=== PATIENT | female | born 1980 ===

== ENCOUNTER 2023-03-11 08:53 | Outpatient (AMB) | payer BC, SELFPAY ==
--- NOTE | 2023-03-11 08:59 | MHC.PC.OV ---
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 Accompanied by: Self / Same As Patient Allergies No Known Allergies Allergy (Mild, Verified 03/11/23 09:14) NOT APPLICABLE Medication List - Last Reconciled 03/11/23 by Heidi Paula MD No Known Home Meds Tobacco use date assessed: 03/11/23 Dental Screening Dental Screen Date: 03/11/23 Did you have a dental visit in the last 12 months?: Yes Did you have a dental problem in the last 6 months where you did not have access to dental care?: No Was dental information given to patient?: Patient has dentist HPI HPI Comments History of Present Illness Details This is a 42-year-old female that comes for new patient physical exam. Last Pap smear was over 4 years ago. No chest pain or shortness of breath. No change in bowel or bladder habits. No depression or anxiety. Has never had a mammogram. [facility] Surgical History No pertinent past surgical history Family History Mother Pre-diabetes Hypertension Father Hypertension Paternal Uncle Prostate cancer Paternal Aunt Bladder cancer Social History Housing: Apartment Alcohol intake: never Patient Tobacco Use Status: Never used Tobacco e-Cigarette/Vaping Use: Never Used Second Hand Smoke Exposure: No service: No Current occupational status: employed Current occupational exposures/hazards: No Cognitive needs: No Hearing needs: No Vision needs: No Questionnaire PHQ-9 Over the last 2 weeks, how often have you been bothered by any of the following problems? 1. Little interest or pleasure in doing things: not at all 2. Feeling down, depressed, or hopeless: not at all 3. Trouble falling or staying asleep, or sleeping too much: not at all 4. Feeling tired or having little energy: not at all 5. Poor appetite or overeating: not at all 6. Feeling bad about yourself - or that you are a failure or have let yourself or your family down: not at all 7. Trouble concentrating on things, such as reading the newspaper or watching television: not at all 8. Moving or speaking so slowly that other people could have noticed. Or the opposite - being so fidgety or restless that you have been moving around a lot more than usual: not at all 9. Thoughts that you would be better off or of hurting yourself in some way: not at all Total score: 0 Depression Screening Interpretation: Negative Depression Screening Done: Yes 52966 - PHQ-9 Billing: Yes Source: Developed by Drs. Corky Wakefield, Lilly Hand, Daniel See and colleagues, with an educational piedad from [employer]. Thrive Questionnaire Date Thrive assessed: 03/11/23 I am a: Patient What is your living situation today?: I have a steady place to live Within the past 12 months, did the food you bought not last and you didn't have the money to get more?: Never true Within the past 12 months, did you worry whether your food would run out before you got money to buy more?: Never true Do you have trouble paying for medicines?: No Do you have trouble getting transportation to medical appointments?: No Do you have trouble paying your heating and electricity bill?: No Do you have trouble taking care of your child, family member or friend?: No Do you have trouble with day-to-day activities such as bathing, preparing meals, shopping, managing finances, etc.?: No Are you currently unemployed and looking for a job?: No Are you interested in more education?: No Please select the resources that you would like help with: None Currently or been in a relationship where the following occur: no concerns reported THRIVE Score: 0 AUDIT C Alcohol Use Questionnaire (AUDIT-C) 1. How often do you have a drink containing alcohol?: Never Total Score: 0 Score Reviewed/Action Taken: No JANA-7 AMB Questionnaire JANA-7 Date JANA - 7 assessed: 03/11/23 Feeling nervous, anxious, or on edge: 0 = Not at all Not being able to stop or control worryin = Not at all Worrying too much about different things: 0 = Not at all Trouble relaxin = Not at all Being so restless that it is hard to sit still: 0 = Not at all Becoming easily annoyed or irritable: 0 = Not at all Feeling afraid as if something awful might happen: 0 = Not at all Total JANA-7 score (0-4 normal; 5-9 mild; 10-14 moderate; 15-21 severe): 0 Source: Developed by Drs. Corky Wakefield, Lilly Hand, Daniel See and colleagues, with an educational piedad from [employer]. JANA-7 Assessment Billing JANA-7 Assessment Tool: JANA-7 Assessment 20148 Review of Systems Const All systems reviewed & are unremarkable except as noted in HPI and below Eyes Reports no additional complaints, Denies change in vision and Denies other visual disturbances Card Denies chest pain at rest, Denies chest pain with activity, Denies edema, Denies irregular heart rhythm, Denies claudication, Denies dyspnea, Denies dyspnea on exertion, Denies orthopnea, Denies paroxysmal nocturnal dyspnea and Denies slow heart rate Resp Denies cough, Denies dyspnea and Denies dyspnea on exertion GI Denies abdominal pain, Denies change in bowel habits, Denies excessive flatus, Denies nausea and Denies vomiting Denies urinary incontinence, Denies urinary hesitancy and Denies urinary urgency Musc Denies abnormal gait, Denies atrophy, Denies deformity and Denies limited range of motion Skin/Breast Denies bleeding lesions, Denies changing lesions and Denies rash Neuro Denies abnormal gait, Denies behavioral changes, Denies confusion and Denies lack of coordination Psych Denies behavioral changes and Denies confusion Physical exam (Primary Care) Vital Signs: Last Vital Signs BP 136/82 03/11/23 09:00 BMI result Body Mass Index 31.7 Tobacco/Smoking Status: Tobacco use Status Tobacco use date assessed 03/11/23 03/11/23 09:06 Patient Tobacco Use Status Never used Tobacco 03/11/23 09:06 e-Cigarette/Vaping Use Never Used 03/11/23 09:06 PHQ-9: PHQ-9 Score PHQ-9: Total score 0 03/11/23 09:29 Depression Screening Interpretation: Negative Thrive Assessment: Date of Thrive Assessment Date Thrive assessed 03/11/23 03/11/23 09:08 Currently or been in a relationship where the following occur: no concerns reported Const General: No confusion Orientation/consciousness: patient oriented x3 and No confusion HENMT Head: Yes normal to inspection, Yes normocephalic and Yes atraumatic Ears: external ears normal Eyes General: appearance normal, both eyes and all related structures Eyelids: Yes eyelids normal Conjunctivae: conjunctivae normal Neck Neck: Yes normal visual inspection and Yes supple Resp Effort & Inspection: normal respiratory effort Auscultation: clear to auscultation bilaterally Cardio Jugular venous distension: no JVD Rate: regular rate Rhythm: regular rhythm Heart sounds: S1 normal heart sound present and S2 normal heart sound present GI Inspection: Yes normal to inspection Palpation (GI): Soft to palpation and nontender Auscultation: normal bowel sounds Skin General skin exam: no rashes or lesions noted Neuro General: patient oriented x3, no focal motor deficits and No confusion Extrem General: Yes full ROM Psych Appearance: grossly normal Office Procedures Flu Questionnaire Does the patient have a severe egg allergy?: No Immunizations flu vacc [id number] 6mos up(PF) 60 mcg(15 mcgx4)/0.5 mL IM syringe Performing Provider: Heidi Paula MD Performing Location: [facility] Documented (not given) by: DENNISE Pennington on 03/11/23 09:07 Reason Not Given: Patient Refused Boostrix Tdap 2.5 Lf unit-8 mcg-5 Lf/0.5 mL intramuscular syringe Performing Provider: Heidi Paula MD Performing Location: [facility] Administered by: DENNISE Pennington on 03/11/23 09:29 Dose Route Admin Location Dispensed Lot Number Expiration Date NDC Computer Forwarding System Markup Clerk 0.5 mL IM Right Deltoid 0.5 mL [id number] 01/14/25 12432-611-23 Complex Media VIS Given Date VIS Provided VIS Publication Date 03/11/23 Single Vaccine 20 Eligibility Eligibility Date Funding Source Not [facility] Eligible 03/11/23 Private Assessment and Plan Assessment & Plan (1) Physical exam: Code(s): Z00.00 - Encounter for general adult medical examination without abnormal findings Plan: Repeat in a year. Orders: Orders Comprehensive [place]. Panel Fast Today Z00.00 - Encounter for general adult medical examination without abnormal findings Lipid Panel Today Z00.00 - Encounter for general adult medical examination without abnormal findings Complete Blood Count Auto Diff Today E66.9 - Obesity, unspecified, Z68.31 - Body mass index [BMI] 31.0-31.9, adult TDaP Immunization Today Z23 - Encounter for immunization MM screening mammo BI Today Z12.31 - Encounter for screening mammogram for malignant neoplasm of breast Influenza [id number] Immunization Today Z23 - Encounter for immunization Thyroid Stimulating Hormone Today E66.9 - Obesity, unspecified, Z68.31 - Body mass index [BMI] 31.0-31.9, adult Referrals SPECIAL SERVICES SUPERVISOR Referral Z12.4 - Encounter for screening for malignant neoplasm of cervix Coding Level of Care Code Est Pt Prev Care 40-64y(64010) Diagnoses Physical exam Z00.00 Additional Codes JANA-7 Assessment Billing - JANA-7 Assessment Tool: JANA-7 Assessment 67546 ([id number]) Time Spent (min) 31
[2023-03-11 09:00] VITALS: BP 136/82; BMI 31.7
== END 2023-03-11 09:31 | disposition home or self-care (01) ==
PROVIDERS: PCP Family Medicine; Visit Provider Internal Medicine
DX: Z23 Encounter for immunization (principal); Z00.00 Encounter for general adult medical examination without abnormal findings
CPT/HCPCS: 90471; 90715; 99396

== ENCOUNTER 2023-03-11 10:36 | Outpatient (REF) | payer BC, SELFPAY ==
[2023-03-11 11:00] LABS: MANUAL DIFF FLAG NO
[2023-03-11 11:56] LABS: Basophils Percent Auto 0.5 % (0-2); Eosinophils Absolute Auto 0.1 X10*3/uL (0.0-0.4); Eosinophils Percent Auto 0.6 % (0-4); Hematocrit 39.4 % (37.0-47.0); Hemoglobin 13.4 g/dl (12.0-16.0); Imm Gran Abs Auto 0.03 X10*3/uL (0.00-0.03); Imm Gran Pct Auto 0.3 % (0.0-0.4); Lymphocytes Absolute Auto 2.1 X10*3/uL (1.2-4.9); Mean Corpuscular Volume 88.3 fL (80.0-98.0); Mean Platelet Volume 11.1 fL (9.4-12.3); Monocytes Absolute Auto 0.5 X10*3/uL (0.1-1.2); Monocytes Percent Auto 5.7 % (2-11); Neutrophils Absolute Auto 5.9 x10*3/uL (2.0-8.3); Neutrophils Percent Auto 68.9 % (45-73); Platelet Count 296 X10*3/uL (160-400); Red Blood Count 4.46 X10*6/uL (4.20-5.50); Red Cell Distribution Width 12.3 % (11.0-16.0); White Blood Count 8.6 X10*3/uL (4.8-10.8)
[2023-03-11 12:31] LABS: Alanine Aminotransferase 11 U/L (0-31); Albumin Level 4.1 g/dL (3.5-5.0); Alkaline Phosphatase 69 U/L (39-117); Anion Gap 12 (12-20); Aspartate Amino Transferase 16 U/L (5-31); Bilirubin Total 0.4 mg/dL (0.0-1.0); Blood Urea Nitrogen 10 mg/dL (9-16); Calcium 9.3 mg/dL (8.4-10.2); Carbon Dioxide 25 mmol/L (22-29); Chloride 104 mmol/L (96-108); Cholesterol 173 mg/dL (<200); Estimated Glomerular Filt Rate > 60; Glucose Fasting 93 mg/dL (60-99); HDL Cholesterol 40 mg/dL (>40); LDL Cholesterol Calculated 111 mg/dL (<100); Potassium 4.1 mmol/L (3.3-5.1); Sodium 137 mmol/L (135-145); Total Protein 7.6 g/dL (6.5-8.0); Triglycerides 110 mg/dL (<150)
[2023-03-11 12:36] LABS: Thyroid Stimulating Hormone 0.55 uIU/mL (0.32-4.0)
== END 2023-03-11 10:37 | disposition home or self-care (01) ==
LOC: HO.LAB 10:36
PROVIDERS: PCP Internal Medicine; Visit Provider Internal Medicine
DX: Z00.00 Encounter for general adult medical examination without abnormal findings (principal); E66.9 Obesity, unspecified; Z68.31 Body mass index [BMI] 31.0-31.9, adult
CPT/HCPCS: 36415; 80053; 80061; 84443; 85025

== ENCOUNTER 2023-03-23 15:39 | Outpatient (REF) | payer BC, SELFPAY ==
--- NOTE | ~2023-03-23 | MM_ITS ---
EXAMINATION: MM SCREENING DIGITAL BREAST TOMOSYNTHESIS, BILATERAL CLINICAL INFORMATION: Screening. Asymptomatic. COMPARISON: Mammography: This is a baseline mammogram. TECHNIQUE: Digital breast tomosynthesis is performed in both the craniocaudal and mediolateral oblique views along with computer-aided detection (CAD). Synthesized 2D images are generated from the tomosynthesis. FINDINGS: There are scattered areas of fibroglandular density (ACR BI-RADS breast composition Category b). There are no significant masses, abnormal calcifications, or other abnormalities. MM/MM tomosynthesis screening BI IMPRESSION: No mammographic evidence of malignancy. ASSESSMENT: BI-RADS BI-RADS 1 - Negative RECOMMENDATION: Routine annual mammography screening. 1 year F/U This examination should not preclude the clinical evaluation of a suspicious palpable abnormality. This patient's information was entered into a reminder system with a target due date for their next mammogram.
== END 2023-03-23 15:40 | disposition home or self-care (01) ==
LOC: HO.MAMMO 15:39
PROVIDERS: PCP Internal Medicine; Visit Provider Internal Medicine
DX: Z12.31 Encounter for screening mammogram for malignant neoplasm of breast (principal)
CPT/HCPCS: 77063; 77067

== ENCOUNTER → 2023-03-23 16:00 | Outpatient (BNV) | payer BC, SELFPAY | PROVIDERS: PCP Internal Medicine; Visit Provider Radiology Diagnostic Radiology | DX: Z12.31 Encounter for screening mammogram for malignant neoplasm of breast (principal) | CPT/HCPCS: 77063; 77067 ==

== ENCOUNTER 2023-04-21 14:35 | Outpatient (REF) | payer BC, SELFPAY ==
[2023-04-24 06:33] LABS: HPV mRNA E6/E7 rflx Not Detected (Not Detected)
== END 2023-04-21 14:36 | disposition home or self-care (01) ==
LOC: HO.LNP 14:35
PROVIDERS: PCP Internal Medicine; Visit Provider Obstetrics & Gynecology
DX: Z01.419 Encounter for gynecological examination (general) (routine) without abnormal findings (principal); Z11.51 Encounter for screening for human papillomavirus (HPV); N85.2 Hypertrophy of uterus
CPT/HCPCS: 87624; 88142

== ENCOUNTER 2023-04-21 14:35 | Outpatient (AMB) | payer BC, SELFPAY ==
--- NOTE | 2023-04-21 14:41 | MHC.OFFVIS ---
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 No complaints. 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 Current occupational exposures/hazards: No Sexually active: Yes Sexual orientation: Straight/Heterosexual Gender identity: Female Cognitive needs: No Hearing needs: No Vision needs: No Female Reproductive History Menstrual Age of Menarche: 12 Duration of menses: <3 days Date of last menstrual period: 03/16/23 Total pregnancies: 2 Full term: 1 Number of Living Children: 1 Ab spontaneous: 1 Date of last pap smear: 07/13/18 Date of Mammogram: 03/23/23 Review of Systems Const All systems reviewed & are unremarkable except as noted in HPI and below Card Reports as per HPI Resp Reports as per HPI GI Reports as per HPI and Reports no additional complaints Reports as per HPI Physical Exam Vital Signs: Last Vital Signs BP 120/76 04/21/23 14:42 BMI result Body Mass Index 31.5 Const General: cooperative, healthy appearing and comfortable Chest Chest palpation & inspection: normal inspection of the chest and normal palpation of entire chest wall Breast/axilla inspection: normal inspection of the breasts and normal inspection of the axillae Breast/axilla palpation: normal palpation of the breasts, normal palpation of the axillae and no axillary lymphadenopathy Resp Effort & Inspection: normal respiratory effort Auscultation: clear to auscultation bilaterally Percussion: percussion normal Cardio Palpation: normal PMI Rate: regular rate Rhythm: regular rhythm Heart sounds: no murmurs and no rubs Peripheral pulses: Peripheral pulses 2+ throughout GI Inspection: Yes normal to inspection Palpation (GI): Soft to palpation, nontender, no guarding, not rigid and No hepatosplenomegaly present Percussion: Yes normal to percussion Auscultation: normal bowel sounds Rectal Exam - Female: deferred General: Yes bladder normal to palpation External Female Exam: No lesion Speculum Exam - Vagina: normal appearance of the vagina, normal palpation, normal vaginal discharge and not erythematous Speculum Exam - Cervix: normal appearance of the cervix and normal palpation Bimanual exam- vagina & uterus: normal bimanual exam, normal palpation, bladder normal to palpation, consistency normal, normal palpation and enlarged Bimanual Exam- Adnexa, other: normal adnexae, no masses and no tenderness Assessment & Plan Assessment & Plan (1) Well woman exam: Code(s): Z01.419 - Encounter for gynecological examination (general) (routine) without abnormal findings Plan: Cotesting done. Instructions given the patient to schedule next screening Mammogram in 04/05. Counseled the patient about the recommended dietary allowance of 1000 mg of Calcium & 600 IU of vitamin D. The patient was instructed to perform monthly self-breast exams and to schedule an annual exam in a year; All questions answered and the patient verbalized understanding. Instructed the patient to schedule annual exam in a year (2) Enlarged uterus: Code(s): N85.2 - Hypertrophy of uterus Plan: Discussed with the patient the finding on pelvic exam, enlarged uterus, will order pelvic ultrasound. Instructions given to the patient to schedule ultrasound follow-up appointment in 2 weeks Orders: Orders US pelvic and transvaginal Today N85.2 - Hypertrophy of uterus Coding Level of Care Code New Pt Prev Care 40-64y(58458) Diagnoses Well woman exam Z01.419 Enlarged uterus N85.2
[2023-04-21 14:42] VITALS: BP 120/76; BMI 31.5
== END 2023-04-21 15:12 | disposition home or self-care (01) ==
PROVIDERS: PCP Internal Medicine; Visit Provider Obstetrics & Gynecology
DX: Z01.419 Encounter for gynecological examination (general) (routine) without abnormal findings (principal); N85.2 Hypertrophy of uterus
CPT/HCPCS: 99386

== ENCOUNTER 2023-04-27 15:08 | Outpatient (REF) | payer BC, SELFPAY ==
--- NOTE | ~2023-04-27 | US_ITS ---
EXAMINATION: US PELVIS CLINICAL INFORMATION: Hypertrophy of uterus, left menstrual period March 16, 2023. COMPARISON: Pelvic ultrasound of 09/08/2018. TECHNIQUE: Ultrasound of the pelvis is performed using both transabdominal and transvaginal transducers along with Doppler. Transvaginal imaging is performed due to inadequate visualization transabdominally. FINDINGS: The uterus measures 10.3 x 5.6 x 6.7 cm. No discrete fibroids are appreciated. Endometrium appears markedly abnormal with thickness of 29 mm and appears echogenic with multiple cystic spaces. Endometrium demonstrated thickness of 25 mm on ultrasound of 09/08/2018. Correlation with clinical exam, gynecologic consultation and possible biopsy recommended. No significant free fluid. Right ovary measures 3.4 x 3.2 x 2.3 cm. Right ovarian 2.4 x 2.2 x 1.7 cm simple cyst. Left ovary measures 2.7 x 1.5 x 2.2 cm and is unremarkable. US/US pelvic and transvaginal IMPRESSION: 1. Endometrium appears markedly abnormal with thickness of 29 mm and appears echogenic with multiple cystic spaces. Endometrium demonstrated thickness of 25 mm on ultrasound of 09/08/2018. Correlation with clinical exam, gynecologic consultation and possible biopsy recommended. 2. Heterogeneous enlarged uterus. No discrete fibroids are appreciated.
== END 2023-04-27 15:09 | disposition home or self-care (01) ==
LOC: HO.US 15:08
PROVIDERS: PCP Internal Medicine; Visit Provider Obstetrics & Gynecology
DX: N85.2 Hypertrophy of uterus (principal)
CPT/HCPCS: 76830; 76856

== ENCOUNTER 2023-05-20 15:38 | Outpatient (AMB) | payer BC, SELFPAY ==
[2023-05-20 15:40] VITALS: BMI 31.5
--- NOTE | 2023-05-20 15:40 | MHC.OFFVIS ---
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 No discrete fibroids are appreciated. Endometrium appears markedly abnormal with thickness of 29 mm and appears echogenic with multiple cystic spaces. Endometrium demonstrated thickness of 25 mm on ultrasound of 09/08/2018. Correlation with clinical exam, gynecologic consultation and possible biopsy recommended. No significant free fluid. Right ovary measures 3.4 x 3.2 x 2.3 cm. Right ovarian 2.4 x 2.2 x 1.7 cm simple cyst. Left ovary measures 2.7 x 1.5 x 2.2 cm and is unremarkable. 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 Current occupational exposures/hazards: No Sexual orientation: Straight/Heterosexual Gender identity: Female Cognitive needs: No Hearing needs: No Vision needs: No Female Reproductive History Menstrual Age of Menarche: 12 Date of last menstrual period: 12/08/19 Total pregnancies: 2 Full term: 2 Review of Systems Card Reports as per HPI and Reports no additional complaints Resp Reports as per HPI and Reports no additional complaints GI Reports as per HPI and Reports no additional complaints Reports as per HPI Physical Exam Vital Signs: BMI result Body Mass Index 31.5 Const General: cooperative, healthy appearing and comfortable Resp Effort & Inspection: normal respiratory effort Auscultation: clear to auscultation bilaterally Percussion: percussion normal Cardio Palpation: normal PMI Rate: regular rate Rhythm: regular rhythm Heart sounds: no murmurs and no rubs Peripheral pulses: Peripheral pulses 2+ throughout GI Inspection: Yes normal to inspection Palpation (GI): Soft to palpation, nontender, no guarding, not rigid and No hepatosplenomegaly present Percussion: Yes normal to percussion Auscultation: normal bowel sounds Rectal Exam - Female: deferred Assessment & Plan Assessment & Plan (1) Abnormal ultrasound of endometrium: Code(s): R93.5 - Abnormal findings on diagnostic imaging of other abdominal regions, including retroperitoneum Plan: Discussed with the patient the results of the ultrasound showing abnormal thickened cystic endometrium, recommended EMB versus hysteroscopy D&C possible polypectomy/myomectomy. All pros and cons, risks and benefits of each approach were discussed with the patient, the patient decided proceed with hysteroscopy D&C possible polypectomy/myomectomy. Discussed with the patient the procedure , all benefits and risks including but not limited to inability to complete the procedure , insufficient endometrial tissue for a complete evaluation of the endometrial cavity , bleeding, infection, possible need for blood transfusion with all its risk ( HIV,syphilis, Hepatitis, anaphylaxis shock, others..), injury to bladder, rectum, possible need for laparoscopy/laparotomy or hysterectomy. The patient verbalized understanding and signed the consent. Instructions given the patient to schedule a 2 week postoperative appointment Coding Level of Care Code Est Pt Level 3 (98242) Diagnoses Abnormal ultrasound of endometrium R93.5
== END 2023-05-20 15:50 | disposition home or self-care (01) ==
LOC: HO.HWS 15:38
PROVIDERS: PCP Internal Medicine; Visit Provider Obstetrics & Gynecology
DX: R93.5 Abnormal findings on diagnostic imaging of other abdominal regions, including retroperitoneum (principal)
CPT/HCPCS: 99213

== ENCOUNTER → 2023-05-20 15:38 | Outpatient (BNVA) | payer BC, SELFPAY | PROVIDERS: PCP Internal Medicine; Visit Provider Obstetrics & Gynecology ==

== ENCOUNTER 2023-06-05 07:45 | Day surgery (SDC) | payer BC, SELFPAY ==
[2023-06-03 13:39] VITALS: BMI 31.5
--- NOTE | 2023-06-03 13:49 | P.CONAN_ITS ---
Documented by User: Nadine Bhatia NP 06/03/23 13:49 HPI - Anesthesia Eval Consult details Narrative: 42yo F for D&C Hysteroscopy,possible myomectomy,possible polypectomy, PMFSH Active Problems Active Problems: All Active Problems Abnormal ultrasound of endometrium (Acute) Enlarged uterus (Acute) Well woman exam (Acute) Screening for cervical cancer (Acute) Physical exam (Acute) Class 1 obesity with body mass index (BMI) of 31.0 to 31.9 in adult (Acute) Past Medical History Medical History Irregular periods Family History Family History Mother Pre-diabetes Hypertension Father Hypertension Paternal Uncle Prostate cancer Paternal Aunt Bladder cancer Surgical History Surgical History Hx of dilation and curettage Social History Social History Household Members: Spouse and Children Housing: Apartment Alcohol intake: never Patient Tobacco Use Status: Never used Tobacco e-Cigarette/Vaping Use: Never Used Second Hand Smoke Exposure: No Use of substances other than those prescribed or required for medical reasons: No Are you DNR?: No Advance Directives: No Advance Directives Information Provided: Yes service: No Current occupational status: employed 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 Current occupational exposures/hazards: No Sexual orientation: Straight/Heterosexual Gender identity: Female Cognitive needs: No Hearing needs: No Vision needs: No Meds Allergies Allergy/AdvReac Type Severity Reaction Status Date / Time No Known Allergies Allergy Mild NOT Verified 06/05/23 08:00 APPLICABLE Home Medications ?Medication ?Instructions ?Recorded ?Confirmed ?Last Taken ?Type No Known Home Meds 03/11/23 06/05/23 Unknown History Exam Height,Weight and Vital Signs: Height 5 ft 3 in Weight 80.739 kg Assessment and Plan Assessment Anesthesia Assessment: Chart Reviewed Documented by User: Randee Rangel MD 06/05/23 09:13 PMF Past Medical History Medical History Irregular periods Family History Family History Mother Pre-diabetes Hypertension Father Hypertension Paternal Uncle Prostate cancer Paternal Aunt Bladder cancer Family history of problems with anesthesia: No Surgical History Surgical History Hx of dilation and curettage History of Problems with Anesthesia: No Social History Social History Household Members: Spouse and Children Housing: Apartment Alcohol intake: never Patient Tobacco Use Status: Never used Tobacco e-Cigarette/Vaping Use: Never Used Second Hand Smoke Exposure: No Use of substances other than those prescribed or required for medical reasons: No Are you DNR?: No Advance Directives: No Advance Directives Information Provided: Yes service: No Current occupational status: employed 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 Current occupational exposures/hazards: No Sexual orientation: Straight/Heterosexual Gender identity: Female Cognitive needs: No Hearing needs: No Vision needs: No Meds Allergies Allergy/AdvReac Type Severity Reaction Status Date / Time No Known Allergies Allergy Mild NOT Verified 06/05/23 08:00 APPLICABLE Home Medications ?Medication ?Instructions ?Recorded ?Confirmed ?Last Taken ?Type No Known Home Meds 03/11/23 06/05/23 Unknown History Exam Airway Mallampati Class: I TM Dist: >3cm Neck ROM: Full Heart: rrr Lungs: cta Assessment and Plan Assessment Anesthesia Assessment: Anesthesia Plan Discussed Final Anesthetic Review Family History of Problems with Anesthesia: No History of Problems with Anesthesia: No NPO: Yes ASA Class: II Final Preanesthetic Review: No Changes in Pt Med Stat, Meds/Allgs Chart Reviewed and Consent Obtained/Reviewed Patient Risk: Low Procedure Risk: Low Anesthetic Plan Anesthetic Plan: GA Disposition: Standard PACU
[2023-06-05] VITALS (9 sets, daily range): BP systolic 135–153; BP diastolic 73–93; PULSE 56–96; RESP 15–16; TEMP 36.1–36.7; O2SAT 97–100; BMI 31.7
[2023-06-05] MEDS: Lactated Ringers 1,000 ML 100 ML IVCONT (08:17)
[2023-06-05 08:21] LABS: UPreg QC Valid YES; Urine Pregnancy NEGATIVE (NEGATIVE)
--- NOTE | 2023-06-05 09:02 | MHC.SHP ---
Pre-Procedural Eval Section A - 24 Hr Update-Section A only Date of Service: 06/05/23 The patient is an INPATIENT: No Changes since office visit: No Cold of Flu in the past 2 weeks, No New Medical Problems, No Changes in Medication and No Patient answered all questions The patient has been examined within 24 hours of the surgical procedure. The History & Physical has been completed within 30 days and I have reviewed it.: Yes Section B - Complete if H&P > 30 days Chief Complaint: Abnormal findings on diagnostic imaging Allergies: Allergies Allergy/AdvReac Type Severity Reaction Status Date / Time No Known Allergies Allergy Mild NOT Verified 06/05/23 08:00 APPLICABLE Plan Diagnosis/Plan: Unchanged I have reviewed the history and physical and performed a pertinent physical examination on my patient. No changes have occurred unless specified. Time Spent With Patient Time: Total time managing care of this patient today ____ minutes.
--- NOTE | 2023-06-05 10:04 | P.BOP_ITS ---
Brief Operative Note Date of Service: 06/05/23 Pre-op diagnosis: Abnormal endometrium by ultrasound Post-op diagnosis: same (Endometrial polyp) Procedure: Hysteroscopy D&C, Polypectomy Surgeon: Alvaro Tobar MD Anesthesia: GLMA Was an Associate Financial Advisor used for this Procedure?: No Estimated blood loss (mL): 0 Pathology: other (Endometrial Scrapping. Polyp) Condition: stable Disposition: PACU
--- NOTE | 2023-06-05 10:04 | P.OP_ITS ---
Operative Note Operative Note Date of Service: 06/05/23 Narrative: Preop Diagnosis: Abnormal endometrium by US Operation: Diagnostic Hysteroscopy, Dilataion & Curettage and polypectomy Post Op Diagnosis: Endometrial Polyp QBL: Minimal Anesthesia: GLMA Surgeon: Alvaro Tobar MD Toll Testboard Worker: None Complication: None Pathology: Endometrial Scrapings, Endometrial polyp Procedure: The patient was put in the dorsal lithotomy position, scrubbed, and draped in the usual manner. A sterile speculum was inserted in the patient's vagina. The anterior lip of the cervix was grasped with a single tooth tenaculum. The cervix was dilated up to 5 mm, then the scope was inserted in the patient's uterus. Inspection revealed endometrial polyp. The Myosure Reach device was used; it was introduced through the operative channel and polypectomy done with no complications. The scope was then taken out from the uterine cavity, sharp curettings was carried on with minimal to moderate amount of tissues retrieved. At the end of the procedure, all instruments were taken out of the patient uterine and vaginal cavity. The single tooth tenaculum was removed and homeostasis was assured using pressure,. The patient tolerated the procedure well and was transferred to the PACU in a stable condition.
[2023-06-05] MEDS: oxyCODONE HCl Immed Release 5 MG TABLET PO (10:25)
[2023-06-05] MEDS: Acetaminophen 325 MG TABLET 975 MG PO (11:27)
== END 2023-06-05 12:50 | disposition home or self-care (01) ==
PROVIDERS: PCP Internal Medicine; Visit Provider Obstetrics & Gynecology
PROC: 0UDB8ZZ Extraction of Endometrium, Via Natural or Artificial Opening Endoscopic (ICD-10-PCS; CPT 58558; principal; 2023-06-05 09:30)
DX: N84.0 Polyp of corpus uteri (principal); N92.6 Irregular menstruation, unspecified
CPT/HCPCS: 58558; 81025; 87480; 87510; 87660; 88305; J1885; J2405; J2704; J3010

== ENCOUNTER → 2023-06-05 07:45 | Outpatient (BNV) | payer BC, SELFPAY | PROVIDERS: PCP Internal Medicine; Visit Provider Obstetrics & Gynecology | DX: N84.0 Polyp of corpus uteri (principal); R93.5 Abnormal findings on diagnostic imaging of other abdominal regions, including retroperitoneum | CPT/HCPCS: 58558 ==

== ENCOUNTER 2023-06-11 14:19 | Outpatient (AMB) | payer BC, SELFPAY ==
[2023-06-11 14:46] VITALS: BP 112/70; BMI 31.5
--- NOTE | 2023-06-11 14:46 | A.OFFVIS_ITS ---
Vital Signs 06/11/23 14:46 Height 5 ft 3 in Weight 178 lb BMI 31.5 BP 112/70 Intake Visit Reasons: post op Tobacco Sizer Required: Yes Tobacco Sizer Language: Creative Arts Music Therapist Name: Ira BOWDEN Information Interpreted: non-clinical & clinical Accompanied by: Self / Same As Patient Allergies No Known Allergies Allergy (Mild, Verified 06/11/23 14:48) NOT APPLICABLE Is last menstrual period known: Yes Last menstrual period: 06/08/23 HPI Comments Details: The patient is presenting post hysteroscopy D&C no complaints minimal vaginal bleeding no feverishness chills or abdominal pain. The pathology showed the following: A. Endometrium, curettage: Endometrial hyperplasia without atypia and fragments consistent with endometrial polyp; no atypia or carcinoma. B. Endometrial polyp, resection: Fragments of endometrial polyp and endometrium with hyperplasia without atypia; no atypia or carcinoma Last mammogram was in 04/04 BI-RADS 1 Last co testing in 05/02 was negative PFSH Medical History Irregular periods Surgical History Hx of dilation and curettage Family History Mother Pre-diabetes Hypertension Father Hypertension Paternal Uncle Prostate cancer Paternal Aunt Bladder cancer Social History Household Members: Spouse and Children Housing: Apartment Alcohol intake: never Patient Tobacco Use Status: Never used Tobacco e-Cigarette/Vaping Use: Never Used Second Hand Smoke Exposure: No service: No Current occupational status: employed 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 Current occupational exposures/hazards: No Sexual orientation: Straight/Heterosexual Gender identity: Female Cognitive needs: No Hearing needs: No Vision needs: No Female Reproductive History Menstrual Age of Menarche: 12 Date of last menstrual period: 06/08/23 Review of Systems Const All systems reviewed & are unremarkable except as noted in HPI and below Reports as per HPI and Reports no additional complaints GI Reports no additional complaints Reports no additional complaints Physical Exam Vital Signs: Last Vital Signs BP 112/70 06/11/23 14:46 BMI result Body Mass Index 31.5 Office Procedures IUD Insert/Removal Details Details: The patient is presenting for Mirena IUD insertion Urine test was done in the office and was negative; All the contraindications were excluded. The following possible complications were discussed with the patient: Intrauterine , Ectopic , Sepsis, Pelvic Infection, Irregular Bleeding and Amenorrhea, Perforation, Expulsion, Ovarian Cysts, Breast Cancer, The following adverse effects were discussed with the patient: alteration of menstrual bleeding pattern, including: unscheduled uterine bleeding decreased uterine bleeding increased scheduled uterine bleeding female genital tract bleeding ,amenorrhea , genital discharge , vulvovaginitis , breast pain , benign ovarian cyst and associated complications , dysmenorrhea , Gastrointestinal disorders abdominal/pelvic pain, headache/migraine , back pain , acne , depression Alternative options were discussed with the patient including but not limited: control pills, patch, NuvaRing, Depo-medroxyprogesterone acetate, Nexplanon, copper IUD, sterilization, vasectomy, others The procedure was explained in detail to patient , at the end patient signed the informed consent obtained. A no touch technique was used throughout the procedure. A speculum was placed into vagina and cervix was cleaned with betadine). A tenaculum was placed. A plastic sound was advanced through the external and internal os until it reached the fundus of the uterus, the depth was 8 cm. The sound was then withdrawn. The IUD was loaded in a sterile manner and advanced into position. The string was visualized and cut to 3 cm. Tenaculum site hemostatic. All instruments removed from vagina. Patient tolerated the procedure well. NO complications were noted. Patient was instructed to call for fever over 100.4, significant pain unrelieved by Motrin, IUD expulsion, heavy bleeding, or abnormal discharge. In addition, the following clinical considerations were discussed with the patient to call for removal: A stroke or heart attack ,Very severe or migraine headaches ,Unexplained fever ,Yellowing of the skin or whites of the eyes, as these may be signs of serious liver problems , or suspected , Pelvic pain or pain during sex ,HIV positive seroconversion in herself or her partner , Possible exposure to sexually transmitted infections Unusual vaginal discharge or genital sores , severe vaginal bleeding or bleeding that lasts a long time, or if she misses a menstrual period, Inability to feel Mirena's threads Counseled the patient that the IUD does not protect against STI's, recommended use of condoms for the first 7 days post insertion and explained to the patient that condoms are recommended for patients at risk for sexually transmitted infections. Informed the patient that Mirena IUD is FDA approved for 8 years for contraception for 5 years for the treatment of heavy menses/endometrial hyperplasia Instructed the patient to schedule a Follow up appointment in 4 to 6 weeks following insertion. This note was generated with a voice recognition program. Some errors may have been overlooked during the review of this note. Sometimes these errors may affect the content or meaning of a given sentence. [id number]-XGD Insertion Procedure code (CPT) selection complete Office Meds Mirena 21 mcg/24 hours (8 yrs) 52 mg intrauterine device Performing Provider: Alvaro Tobar MD Performing Location: [facility] [place] [facility] Documented (not given) by: Alvaro Tobar MD on 06/11/23 15:19 Dose Route Admin Location Dispensed Lot Number Expiration Date [facility] Oil Transport Driver 1 device intrauterine ea Results AMB Test Urine AMB Test Urine Negative Last Edit by DENNISE Boyer on 06/11/23 15:11 Results Reviewed Results Reviewed: Laboratory Last Values [facility]st Clinic Negative 06/11/23 15:10 Assessment & Plan Assessment & Plan (1) Endometrial hyperplasia without atypia: Code(s): N85.00 - Endometrial hyperplasia, unspecified Category: Medical Plan: Discussed with the patient the pathology results, simple endometrial hyperplasia with no atypia, in addition to the risk of progression, the persistence and regression rate of endometrial hyperplasia. Options of treatment discussed with the patient included p.o. progestins, control pills or Mirena IUD which is superior in terms of efficacy to treat endometrial hyperplasia. All pros and cons, risks and benefits of each were discussed with the patient. Patient decided to proceed with Mirena IUD insertion. A more detailed discussion was carried on including mechanism of action, risks (infection, uterine perforation, failure with ectopic , septic AB, ovarian cyst and pelvic pain, increased breast cancer risk and others) benefits (lowers the risk of endometrial hyperplasia persistent/progression to neoplasia, efficient contraceptive method, others), GC/CG were taken, IUD inserted, see procedure note The patient was instructed to schedule an appointment for repeat endometrial biopsy every 3 months for a years to r/o persistent/progression of the endometrial hypeprlasia, to call for any abnormal uterine bleeding prior to that for endometrial sampling to rule out endometrial pathology including endometrial hyperplasia and/or malignancy, otherwise the patient was instructed to schedule an appointment for endometrial biopsy every 3 months for a year. All questions answered, the patient verbalized understanding (2) Encounter for IUD insertion: Code(s): Z30.430 - Encounter for insertion of intrauterine contraceptive device Category: Medical Plan: UPT done in the office was negative. Mirena IUD inserted, see procedure note Instructions given to patient to call in case of temperature above 104, pelvic pain and or heavy bleeding and to schedule a 1 month IUD check appointment Orders: Orders AMB HCG Urine Test Today Z32.02 - Encounter for test, result negative AMB IUD Insertion/Removal - Practice Supplied Today N85.00 - Endometrial hyperplasia, unspecified, Z30.430 - Encounter for insertion of intrauterine contraceptive device Medications: New Mirena (levonorgestrel) 1 device intrauterine ONCE 1 ea 0RF Endometrial hyperplasia NS N85.00 - Endometrial hyperplasia, unspecified, Z30.430 - Encounter for insertion of intrauterine contraceptive device Coding Level of Care Code Est Pt Level 3 (73664) Procedure Only Diagnoses Endometrial hyperplasia without atypia N85.00 Encounter for IUD insertion Z30.430 CPT Codes Details - CPT: 15327-NUO Insertion ([id number])
== END 2023-06-11 15:03 | disposition home or self-care (01) ==
LOC: HO.HWS 14:19
PROVIDERS: PCP Internal Medicine; Visit Provider Obstetrics & Gynecology
DX: N85.00 Endometrial hyperplasia, unspecified (principal); Z30.430 Encounter for insertion of intrauterine contraceptive device; Z32.02 Encounter for pregnancy test, result negative
CPT/HCPCS: 58300; 99213

== ENCOUNTER 2023-06-11 14:19 | Outpatient (REF) | payer BC, SELFPAY | END 2023-06-11 14:20 | disposition home or self-care (01) | LOC: HO.LNP 14:19 | PROVIDERS: PCP Internal Medicine; Visit Provider Obstetrics & Gynecology | DX: Z30.430 Encounter for insertion of intrauterine contraceptive device (principal); N85.00 Endometrial hyperplasia, unspecified | CPT/HCPCS: 58300; 81025; J7298 ==

== ENCOUNTER 2023-06-12 17:04 | Outpatient (REF) | payer BC, SELFPAY ==
[2023-06-12 18:49] LABS: CT PCR NOT DETECTED (Not Detect.); NG PCR NOT DETECTED (Not Detect.)
== END 2023-06-12 17:05 | disposition home or self-care (01) ==
LOC: HO.LNP 17:04
PROVIDERS: Visit Provider Obstetrics & Gynecology
DX: Z30.430 Encounter for insertion of intrauterine contraceptive device (principal); N85.00 Endometrial hyperplasia, unspecified
CPT/HCPCS: 0353U

== ENCOUNTER 2023-07-20 15:31 | Outpatient (AMB) | payer BC, SELFPAY ==
[2023-07-20 15:42] VITALS: BMI 31.2
--- NOTE | 2023-07-20 15:42 | A.OFFVIS_ITS ---
Vital Signs 07/20/23 15:42 Height 5 ft 3 in Weight 176 lb 5.917 oz BMI 31.2 Intake Visit Reasons: IUD Check Instructor Adjunct Surgical Technician Required: Yes Instructor Adjunct Surgical Technician Language: Steamfitter Apprentice Name: Ira BOWDEN Information Interpreted: non-clinical & clinical Global Project Manager: Global Project Manager Present (Ira BOWDEN) Accompanied by: Self / Same As Patient Allergies No Known Allergies Allergy (Mild, Verified 07/20/23 15:42) NOT APPLICABLE Is last menstrual period known: No (mirena) HPI Comments Details: The patient is presenting for IUD check after 1 st period following IUD insertion. The patient has no complaints . 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 Current occupational exposures/hazards: No Sexual orientation: Straight/Heterosexual Gender identity: Female Cognitive needs: No Hearing needs: No Vision needs: No Female Reproductive History Menstrual Age of Menarche: 12 Review of Systems Const All systems reviewed & are unremarkable except as noted in HPI and below Physical Exam Vital Signs: BMI result Body Mass Index 31.2 General: Yes no CVA tenderness External Female Exam: normal external appearance and normal appearance of the urethra Speculum Exam - Vagina: normal appearance of the vagina, normal palpation, no lesions and no masses Speculum Exam - Cervix: normal appearance of the cervix, normal palpation, no lesions, no masses, nontender and Other cervical findings present (IUD thread in place) Bimanual exam- vagina & uterus: normal bimanual exam, normal palpation, uterine size normal, normal palpation, uterine shape normal, No Cervical tenderness present and non-tender Bimanual Exam- Adnexa, other: normal adnexae Back/Spine/Pelvis Back: no CVA tenderness Results AMB Test Urine AMB Test Urine Negative Last Edit by Ira Maynard CMA on 15:48 Assessment & Plan Assessment & Plan (1) IUD check up: Comment: For endometrial hyperplasia Code(s): Z30.431 - Encounter for routine checking of intrauterine contraceptive device Category: Medical Plan: UPT done in the office was negative. Discussed with the patient the finding on physical exam, IUD string in place, the patient was reassured. Instructions given to patient to call in case of temperature above 100.4, severe cramping/pelvic pain, abnormal discharge or abnormal uterine bleeding or if she misses her menstrual cycle. Otherwise follow-up at next scheduled EMB appointment in 09/28. All questions answered, the patient verbalized understanding. Coding Level of Care Code Est Pt Level 3 (92195) Diagnoses IUD check up Z30.431
== END 2023-07-20 15:56 | disposition home or self-care (01) ==
LOC: HO.HWS 15:31
PROVIDERS: PCP Internal Medicine; Visit Provider Obstetrics & Gynecology
DX: Z30.431 Encounter for routine checking of intrauterine contraceptive device (principal); Z32.02 Encounter for pregnancy test, result negative
CPT/HCPCS: 99213

== ENCOUNTER → 2023-07-20 15:31 | Outpatient (BNVA) | payer BC, SELFPAY | PROVIDERS: PCP Internal Medicine; Visit Provider Obstetrics & Gynecology | DX: Z30.431 Encounter for routine checking of intrauterine contraceptive device (principal) | CPT/HCPCS: 81025 ==

== ENCOUNTER 2023-09-16 15:12 | Outpatient (AMB) | payer BC, SELFPAY ==
[2023-09-16 15:16] VITALS: BMI 31.2
--- NOTE | 2023-09-16 15:16 | MHC.OFFVIS ---
Vital Signs 09/16/23 15:16 Height 5 ft 3 in Weight 176 lb 5.917 oz BMI 31.2 Intake Visit Reasons: EMB Allergies No Known Allergies Allergy (Mild, Verified 07/20/23 15:42) NOT APPLICABLE HPI Comments Details: Presenting for endometrial biopsy [facility] Medical History Irregular periods Surgical History Hx of dilation and curettage Family History Mother Pre-diabetes Hypertension Father Hypertension Paternal Uncle Prostate cancer Paternal Aunt Bladder cancer Social History Household Members: Spouse and Children Housing: Apartment Alcohol intake: never Patient Tobacco Use Status: Never used Tobacco e-Cigarette/Vaping Use: Never Used Second Hand Smoke Exposure: No service: No Current occupational status: employed 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 Current occupational exposures/hazards: No Sexual orientation: Straight/Heterosexual Gender identity: Female Cognitive needs: No Hearing needs: No Vision needs: No Female Reproductive History Menstrual Age of Menarche: 12 Review of Systems Const All systems reviewed & are unremarkable except as noted in HPI and below Reports as per HPI and Reports no additional complaints GI Reports no additional complaints Reports no additional complaints Physical Exam Vital Signs: BMI result Body Mass Index 31.2 Office Procedures Endometrial Biopsy Details: The patient was counseled regarding the indication and benefits of endometrial sampling to rule out endometrial pathology including not limited to endometrial hyperplasia or endometrial cancer and others; The alternatives (Either do nothing vs. hysteroscopy D&C) & the risks were discussed with the patient including but not limited: pain, uterine perforation, bleeding, infection, possible injury to bladder, bowel, ureter, possible need for blood transfusion with all its possible risks. The patient verbalized understanding all questions answered and signed consent. Urine test done in the office was negative The patient was placed into the dorsal lithotomy position; a speculum was inserted in the vagina. Using aseptic technique for the procedure, the cervix was cleansed with Betadine. The anterior lip of the cervix was grasped with a single tooth tenaculum. The uterus was sounded to 7 cm with a 4 mm Pipelle was used. Tissues samples were obtained and placed in formalin, in a patient labeled container and sent to the pathology department. At the end of the procedure, there was minimal bleeding noted The patient tolerated the procedure well and was discharged in good condition with the following instructions: Nothing in the vagina until the bleeding stops. No sex until the bleeding stops, to call if any of the following occurs: fever (>100.4), flu-like symptoms, abdominal pain, heavy bleeding, four smelling vaginal discharge. The patient was instructed to schedule a Follow up appointment in 2 weeks to discuss pathology results of the biopsy and treatment options. This note was generated with a voice recognition program. Some errors may have been overlooked during the review of this note. Sometimes these errors may affect the content or meaning of a given sentence. [id number] Biopsy Assessment & Plan Assessment & Plan (1) Endometrial hyperplasia without atypia: Comment: 06/02 on Mirena IUD since then Code(s): N85.00 - Endometrial hyperplasia, unspecified Category: Medical Plan: EMB repeated, see procedure Orders: Orders AMB Endometrial Biopsy Today N85.00 - Endometrial hyperplasia, unspecified Coding Level of Care Code Procedure Only Diagnoses Endometrial hyperplasia without atypia N85.00 CPT Codes Endometrial Biopsy - CPT: 39103-Sytjvtfnpvr Biopsy ([id number])
== END 2023-09-16 15:35 | disposition home or self-care (01) ==
LOC: HO.HWS 15:12
PROVIDERS: PCP Internal Medicine; Visit Provider Obstetrics & Gynecology
DX: N85.00 Endometrial hyperplasia, unspecified (principal); Z32.02 Encounter for pregnancy test, result negative
CPT/HCPCS: 58100

== ENCOUNTER 2023-09-16 15:12 | Outpatient (REF) | payer BC, SELFPAY | END 2023-09-16 15:13 | disposition home or self-care (01) | LOC: HO.LNP 15:12 | PROVIDERS: PCP Internal Medicine; Visit Provider Obstetrics & Gynecology | DX: N85.00 Endometrial hyperplasia, unspecified (principal); R93.5 Abnormal findings on diagnostic imaging of other abdominal regions, including retroperitoneum | CPT/HCPCS: 58100; 81025; 88305 ==

== ENCOUNTER 2023-11-19 15:03 | Outpatient (AMB) | payer BC, SELFPAY ==
--- NOTE | 2023-11-19 15:05 | MHC.OFFVIS ---
Intake Visit Reasons: EMB results Line Maintenance Technician Required: Yes Line Maintenance Technician Language: Pattern Weaver Name: Ira Allergies No Known Allergies Allergy (Mild, Verified 07/20/23 15:42) NOT APPLICABLE HPI Comments Details: The patient is presenting after endometrial biopsy. The patient has no complaints, no vaginal bleeding, no feverishness chills or abdominal pain. The endometrial biopsy pathology report showed the following: Endometrium, biopsy: Fragments of benign endometrium with pseudodecidual change, consistent with exogenous progestin, organizing clot and breakdown; no atypia or hyperplasia identified 06/02 EMB showed endometrial hyperplasia without atypia 08/02 Mirena IUD inserted [facility] Medical History Irregular periods Surgical History Hx of dilation and curettage Family History Mother Pre-diabetes Hypertension Father Hypertension Paternal Uncle Prostate cancer Paternal Aunt Bladder cancer Social History Household Members: Spouse and Children Housing: Apartment Alcohol intake: never Patient Tobacco Use Status: Never used Tobacco e-Cigarette/Vaping Use: Never Used Second Hand Smoke Exposure: No service: No Current occupational status: employed 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 Current occupational exposures/hazards: No Sexual orientation: Straight/Heterosexual Gender identity: Female Cognitive needs: No Hearing needs: No Vision needs: No Female Reproductive History Menstrual Age of Menarche: 12 Review of Systems Const All systems reviewed & are unremarkable except as noted in HPI and below Reports as per HPI and Reports no additional complaints GI Reports no additional complaints Reports no additional complaints Assessment & Plan Assessment & Plan (1) Endometrial hyperplasia without atypia: Comment: 06/02 on Mirena IUD since then Code(s): N85.00 - Endometrial hyperplasia, unspecified Category: Medical Plan: Discussed with the patient the results of the endometrial biopsy showing no evidence endometrial hyperplasia and/or malignancy. Explained to the patient the sensitivity, specificity, false-positive false-negative rate in detecting endometrial hyperplasia or malignancy. Recommended repeat endometrial biopsy in 4 months. Instructions given the patient to schedule an EMB appointment and to call in case of abnormal uterine bleeding. All questions answered, the patient verbalized understanding. Coding Level of Care Code Est Pt Level 3 (80218) Diagnoses Endometrial hyperplasia without atypia N85.00
== END 2023-11-19 15:30 | disposition home or self-care (01) ==
PROVIDERS: PCP Internal Medicine; Visit Provider Obstetrics & Gynecology
DX: N85.00 Endometrial hyperplasia, unspecified (principal)
CPT/HCPCS: 99213

== ENCOUNTER → 2023-11-19 15:03 | Outpatient (BNVA) | payer BC, SELFPAY | PROVIDERS: PCP Internal Medicine; Visit Provider Obstetrics & Gynecology ==

== ENCOUNTER 2024-03-14 15:43 | Outpatient (AMB) | payer BC, SELFPAY ==
--- NOTE | 2024-03-14 15:49 | A.OFFPC_ITS ---
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 Required: Yes Topline Beading Machine Tender Language: Rn Care Manager Name: Heidi Paula MD Information Interpreted: non-clinical & clinical Accompanied by: Self / Same As Patient Allergies No Known Allergies Allergy (Mild, Verified 03/14/24 16:02) NOT APPLICABLE Medication List - Last Reconciled 03/14/24 by Heidi Paula MD No Known Home Meds Tobacco use date assessed: 03/14/24 Dental Screening Dental Screen Date: 03/14/24 Did you have a dental visit in the last 12 months?: Yes Did you have a dental problem in the last 6 months where you did not have access to dental care?: No Was dental information given to patient?: Patient has dentist HPI HPI Comments History of Present Illness Details This is a 43-year-old female that comes for her physical exam. She has no acute complaints. Mammogram done 2023 was normal. Pap smear done 2023. She has class 1 obesity with a BMI of 34.2 and was advised to do diet and exercise to reach BMI goal less than 30. No chest pain or shortness on breath. 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 1. Little interest or pleasure in doing things: not at all 2. Feeling down, depressed, or hopeless: not at all 3. Trouble falling or staying asleep, or sleeping too much: not at all 4. Feeling tired or having little energy: not at all 5. Poor appetite or overeating: not at all 6. Feeling bad about yourself - or that you are a failure or have let yourself or your family down: not at all 7. Trouble concentrating on things, such as reading the newspaper or watching television: not at all 8. Moving or speaking so slowly that other people could have noticed. Or the opposite - being so fidgety or restless that you have been moving around a lot more than usual: not at all 9. Thoughts that you would be better off or of hurting yourself in some wa y: not at all Total score: 0 Depression Screening Interpretation: Negative Depression Screening Done: Yes 04737 - PHQ-9 Billing: Yes Source: Developed by Drs. Corky Wakefield, Lilly Hand, Daniel See and colleagues, with an educational piedad from [employer]. Thrive Questionnaire Date Thrive assessed: 03/14/24 I am a: Patient What is your living situation today?: I have a steady place to live Within the past 12 months, did the food you bought not last and you didn't have the money to get more?: Never true Within the past 12 months, did you worry whether your food would run out before you got money to buy more?: Never true Do you have trouble paying for medicines?: No Do you have trouble getting transportation to medical appointments?: No Do you have trouble paying your heating and electricity bill?: No Do you have trouble taking care of your child, family member or friend?: No Do you have trouble with day-to-day activities such as bathing, preparing meals, shopping, managing finances, etc.?: No Are you currently unemployed and looking for a job?: No Are you interested in more education?: No Please select the resources that you would like help with: None Currently or been in a relationship where the following occur: No concerns reported THRIVE Score: 0 AUDIT C Alcohol Use Questionnaire (AUDIT-C) 1. How often do you have a drink containing alcohol?: Never Total Score: 0 Score Reviewed/Action Taken: No JANA-7 AMB Questionnaire JANA-7 Date JANA - 7 assessed: 03/14/24 Feeling nervous, anxious, or on edge: 0 = Not at all Not being able to stop or control worryin = Not at all Worrying too much about different things: 0 = Not at all Trouble relaxin = Not at all Being so restless that it is hard to sit still: 0 = Not at all Becoming easily annoyed or irritable: 0 = Not at all Feeling afraid as if something awful might happen: 0 = Not at all Total JANA-7 score (0-4 normal; 5-9 mild; 10-14 moderate; 15-21 severe): 0 Source: Developed by Drs. Corky Wakefield, Lilly Hand, Daniel See and colleagues, with an educational piedad from [employer]. JANA-7 Assessment Billing JANA-7 Assessment Tool: JANA-7 Assessment 62288 Review of Systems Const All systems reviewed & are unremarkable except as noted in HPI and below Card Denies chest pain at rest, Denies chest pain with activity, Denies edema, Denies irregular heart rhythm, Denies claudication, Denies dyspnea, Denies dyspnea on exertion, Denies orthopnea, Denies paroxysmal nocturnal dyspnea and Denies slow heart rate Resp Denies cough, Denies dyspnea and Denies dyspnea on exertion GI Denies abdominal pain, Denies change in bowel habits, Denies excessive flatus, Denies nausea and Denies vomiting Denies urinary incontinence, Denies urinary hesitancy and Denies urinary urgency Musc Denies atrophy, Denies deformity and Denies limited range of motion Skin/Breast Denies bleeding lesions, Denies changing lesions and Denies rash Physical exam (Primary Care) Vital Signs: Last Vital Signs BP 132/80 03/14/24 15:51 BMI result Body Mass Index 34.2 BMI Assessment/Plan discussion: High BMI High, discussed plan: lifestyle, weight reduction, dietary and physical activity Tobacco/Smoking Status: Tobacco use Status Tobacco use date assessed 03/14/24 03/14/24 15:57 Patient Tobacco Use Status Never used Tobacco 03/14/24 15:54 e-Cigarette/Vaping Use Never Used 03/14/24 15:54 PHQ-9: PHQ-9 Score PHQ-9: Total score 0 03/14/24 15:54 Depression Screening Interpretation: Negative Thrive Assessment: Date of Thrive Assessment Date Thrive assessed 03/14/24 03/14/24 15:54 Currently or been in a relationship where the following occur: No concerns reported [facility] Head: Yes normal to inspection, Yes normocephalic and Yes atraumatic Ears: external ears normal Eyes General: appearance normal, both eyes and all related structures Eyelids: Yes eyelids normal Conjunctivae: conjunctivae normal Neck Neck: Yes normal visual inspection and Yes supple Resp Effort & Inspection: normal respiratory effort Auscultation: clear to auscultation bilaterally Cardio Jugular venous distension: no JVD Rate: regular rate Rhythm: regular rhythm Heart sounds: S1 normal heart sound present and S2 normal heart sound present GI Inspection: Yes normal to inspection Palpation (GI): Soft to palpation and nontender Auscultation: normal bowel sounds Skin General skin exam: no rashes or lesions noted Neuro General: no focal motor deficits Extrem General: Yes full ROM Psych Appearance: grossly normal Coding Level of Care Code Est Pt Prev Care 18-39y(20309) Diagnoses Physical exam Z00.00 Additional Codes PHQ-9 - 81541 - PHQ-9 Billing: Yes ([id number]) JAAN-7 Assessment Billing - JANA-7 Assessment Tool: JANA-7 Assessment 03091 ([id number]) Time Spent (min) 31 Assessment & Plan Assessment & Plan (1) Physical exam: Code(s): Z00.00 - Encounter for general adult medical examination without abnormal findings Category: Medical Plan Repeat in a year.
[2024-03-14 15:51] VITALS: BP 132/80; BMI 34.2
--- OUTSIDE RECORDS SUMMARY | 2024-03-14 17:05 | XMS_ITS | Clinical Summary ---
Author Organization [employer] Address [address] [place] [address] [address] [place] [address] Care Team Providers Care Winding Operator Name Role Phone Unavailable Primary Care Provider Unavailabl e Social History Tobacco Use Types Packs/Day Years Used Date Smoking Tobacco: Never Assessed Comments Unknown Sex and Gender Information Value Date Recorded Sex Assigned at Female 12/09/2021 10:18 AM EDT Legal Sex Female 10:18 AM EDT Gender Identity Female 12/09/2021 10:18 AM EDT Sexual Orientation Straight 12/09/2021 10 :18 AM EDT Last Filed Vital Signs Vital Sign Reading Time Taken Comments Blood Pressure 142/88 01/26/2019 12:12 AM EST Pulse 72 01/26/2019 12:12 AM EST Temperature - - Respiratory Rate - - Oxygen Saturation - - Inhaled Oxygen Concentration - - Weight 74.5 kg (164 lb 3.2 oz) 01/26/2019 12:12 AM EST Height 157.5 cm (5' 2 ) 01/26/2019 12:12 AM EST Body Mass Index 30.03 01/26/2019 12:12 AM EST Plan of Treatment Health Maintenance Due Date Last Done Comments Depression Screening 1982 Alcohol/Substance Use Screening 1994 Tobacco Screening 1994 Family Planning (PISQ) 1997 Hepatitis B Vaccines (1 of 3 - 19+ 3-dose series) 2001 Pap Smear 08/22/2003 Cervical Cancer Screening 2012 HPV/Cotest 2012 DTaP/Tdap/Td Vaccines (3 - T d or Tdap) 06/14/2022 06/14/2012, 10/17/2011 Mammogram 2022 COVID-19 Vaccine (2023-2 5 season) 2023 Influenza Vaccine (#1) 2023 10/17/2011 Zoster Vaccines (1 of 2) 2032 RSV Patients and Patients Aged 60 years or older (1 - 1-dose 75+ series) 2057 HIB Vaccines Aged Out No longer eligi ble based on patient's age to complete this topic HPV Vaccines Aged Out No longer eligi ble based on patient's age to complete this topic Hepatitis A Vaccines Aged Out No long er eligible based on patient's age to complete this topic IPV Vaccines Aged Out No longer eligi ble based on patient's age to complete this topic Meningococcal Vaccine Aged Out No leti asim eligible based on patient's age to complete this topic Pneumococcal Vaccine: Pediatrics (0 to 5 Years) and At-Risk Patients (6 to 49) Years) Aged Out No longer eligible b ased on patient's age to complete this topic RSV under 20 months Aged Out No longe r eligible based on patient's age to complete this topic Rotavirus Vaccines Aged Out No longer eligible based on patient's age to complete this topic
== END 2024-03-14 16:11 | disposition home or self-care (01) ==
PROVIDERS: PCP Internal Medicine; Visit Provider Internal Medicine
DX: Z00.00 Encounter for general adult medical examination without abnormal findings (principal)

== ENCOUNTER → 2024-03-14 15:43 | Outpatient (BNVA) | payer BC, SELFPAY | PROVIDERS: PCP Internal Medicine; Visit Provider Internal Medicine | DX: Z00.00 Encounter for general adult medical examination without abnormal findings (principal); E66.811 Obesity, class 1; Z68.34 Body mass index [BMI] 34.0-34.9, adult | CPT/HCPCS: 96127 ==

== ENCOUNTER 2024-03-29 15:40 | Outpatient (REF) | payer BC, SELFPAY ==
--- OUTSIDE RECORDS SUMMARY | 2024-03-29 16:38 | XMS_ITS | Clinical Summary ---
Author Organization [employer] Address [address] [place] [address] [address] [place] [address] Care Team Providers Care Keno Writer/Runner Name Role Phone Unavailable Primary Care Provider [...]
== END 2024-03-29 15:41 | disposition home or self-care (01) ==
LOC: HO.LNP 15:40
PROVIDERS: PCP Internal Medicine; Visit Provider Obstetrics & Gynecology
DX: N85.00 Endometrial hyperplasia, unspecified (principal); R93.5 Abnormal findings on diagnostic imaging of other abdominal regions, including retroperitoneum
CPT/HCPCS: 58100; 88305

== ENCOUNTER 2024-03-29 15:40 | Outpatient (AMB) | payer BC, SELFPAY ==
--- NOTE | 2024-03-29 15:50 | MHC.OFFVIS ---
Intake Visit Reasons: EMB Nuclear Medicine Chief Technologist: Nuclear Medicine Chief Technologist Present (Alejandra) Accompanied by: Self / Same As Patient Allergies No Known Allergies Allergy (Mild, Verified 03/29/24 15:50) NOT APPLICABLE HPI Comments Details: Presenting for EMB [facility] Medical History Irregular periods Surgical History Hx of dilation and curettage Family History Mother Pre-diabetes Hypertension Father Hypertension Paternal Uncle Prostate cancer Paternal Aunt Bladder cancer Social History Household Members: Spouse and Children Housing: Apartment Alcohol intake: never Patient Tobacco Use Status: Never used Tobacco e-Cigarette/Vaping Use: Never Used Second Hand Smoke Exposure: No service: No Current occupational status: employed 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 Current occupational exposures/hazards: No Sexual orientation: Straight/Heterosexual Gender identity: Female Cognitive needs: No Hearing needs: No Vision needs: No Female Reproductive History Menstrual Age of Menarche: 12 Review of Systems Const All systems reviewed & are unremarkable except as noted in HPI and below Reports as per HPI and Reports no additional complaints GI Reports no additional complaints Reports no additional complaints Office Procedures Endometrial Biopsy Details: The patient was counseled regarding the indication and benefits of endometrial sampling to rule out endometrial pathology including not limited to endometrial hyperplasia or endometrial cancer and others; The alternatives (Either do nothing vs. hysteroscopy D&C) & the risks were discussed with the patient including but not limited: pain, uterine perforation, bleeding, infection, possible injury to bladder, bowel, ureter, possible need for blood transfusion with all its possible risks. The patient verbalized understanding all questions answered and signed consent. Urine test done in the office was negative The patient was placed into the dorsal lithotomy position; a speculum was inserted in the vagina. Using aseptic technique for the procedure, the cervix was cleansed with Betadine. The anterior lip of the cervix was grasped with a single tooth tenaculum. The uterus was sounded to 7 cm with a 4 mm Pipelle was used. Tissues samples were obtained and placed in formalin, in a patient labeled container and sent to the pathology department. At the end of the procedure, there was minimal bleeding noted The patient tolerated the procedure well and was discharged in good condition with the following instructions: Nothing in the vagina until the bleeding stops. No sex until the bleeding stops, to call if any of the following occurs: fever (>100.4), flu-like symptoms, abdominal pain, heavy bleeding, four smelling vaginal discharge. The patient was instructed to schedule a Follow up appointment in 2 weeks to discuss pathology results of the biopsy and treatment options. This note was generated with a voice recognition program. Some errors may have been overlooked during the review of this note. Sometimes these errors may affect the content or meaning of a given sentence. 41022-Aedmaebdihr Biopsy Assessment & Plan Assessment & Plan (1) Endometrial hyperplasia without atypia: Comment: 06/02 on Mirena IUD since then Code(s): N85.00 - Endometrial hyperplasia, unspecified Category: Medical Plan: EMB done, see procedure note Orders: Orders AMB Endometrial Biopsy Today N85.00 - Endometrial hyperplasia, unspecified Coding Level of Care Code Procedure Only Diagnoses Endometrial hyperplasia without atypia N85.00 CPT Codes Endometrial Biopsy - CPT: 06609-Obxohzolhoz Biopsy ([id number])
== END 2024-03-31 11:50 | disposition home or self-care (01) ==
PROVIDERS: PCP Internal Medicine; Visit Provider Obstetrics & Gynecology
DX: N85.00 Endometrial hyperplasia, unspecified (principal)
CPT/HCPCS: 58100

== ENCOUNTER 2024-04-04 15:25 | Outpatient (REF) | payer BC, SELFPAY ==
--- OUTSIDE RECORDS SUMMARY | 2024-04-04 17:42 | XMS_ITS | Clinical Summary ---
Author Organization [employer] Address [address] [place] [address] [address] [place] [address] Care Team Providers Care Certified Nutritionist Name Role Phone Unavailable Primary Care Provider [...]
== END 2024-04-04 15:26 | disposition home or self-care (01) ==
LOC: HO.MAMMO 15:25
PROVIDERS: PCP Internal Medicine; Visit Provider Internal Medicine
DX: Z12.31 Encounter for screening mammogram for malignant neoplasm of breast (principal)
CPT/HCPCS: 77063; 77067

== ENCOUNTER → 2024-04-04 15:45 | Outpatient (BNV) | payer BC, SELFPAY | PROVIDERS: PCP Internal Medicine; Visit Provider Internal Medicine | DX: Z12.31 Encounter for screening mammogram for malignant neoplasm of breast (principal) | CPT/HCPCS: 77063; 77067 ==

== ENCOUNTER 2024-04-13 15:50 | Outpatient (AMB) | payer BC, SELFPAY ==
--- NOTE | 2024-04-13 15:51 | A.OFFVIS_ITS ---
Intake Visit Reasons: EMB results Volunteer Recruitment Coordinator Required: Yes Volunteer Recruitment Coordinator Language: Furnace Mechanic Helper Services: Volunteer Recruitment Coordinator Present (in person) Volunteer Recruitment Coordinator Name: Ira BOWDEN Information Interpreted: non-clinical & clinical Allergies No Known Allergies Allergy (Mild, Verified 03/29/24 15:50) NOT APPLICABLE HPI Comments Details: The patient is presenting after endometrial biopsy. The patient has no complaints, no vaginal bleeding, no feverishness chills or abdominal pain. The endometrial biopsy pathology report showed the following: Benign endometrium with atrophic glands, fibrin thrombi, and decidual stromal change, consistent with progestin effect; no atypia or carcinoma 06/02 EMB showed endometrial hyperplasia without atypia 08/02 Mirena IUD inserted 10/02 EMB showed benign endometrium PFSH Medical History Irregular periods Surgical History Hx of dilation and curettage Family History Mother Pre-diabetes Hypertension Father Hypertension Paternal Uncle Prostate cancer Paternal Aunt Bladder cancer Social History Household Members: Spouse and Children Housing: Apartment Alcohol intake: never Patient Tobacco Use Status: Never used Tobacco e-Cigarette/Vaping Use: Never Used Second Hand Smoke Exposure: No service: No Current occupational status: employed 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 Current occupational exposures/hazards: No Sexual orientation: Straight/Heterosexual Gender identity: Female Cognitive needs: No Hearing needs: No Vision needs: No Female Reproductive History Menstrual Age of Menarche: 12 Telehealth Telehealth Telehealth Platform: Telephone Location of provider rendering services: practice address Location of patient: address on file Patient Identification confirmed using: Name, : Yes Telehealth method: video Patient verbally consented to treatment: Yes Patient verbally consented to billing insurance company: Yes Patient informed of any privacy concerns related to visit: Yes Minutes spent on Phone/Video with Pt.: 2 Assessment & Plan Assessment & Plan (1) Endometrial hyperplasia without atypia: Comment: 06/02 on Mirena IUD since then Code(s): N85.00 - Endometrial hyperplasia, unspecified Category: Medical Plan: Discussed with the patient the results the pathology showing benign endometrium no evidence of endometrial hyperplasia or malignancy. Recommended repeat EMB in 3 months. Instructions given the patient to call in case of abnormal uterine bleeding prior to next visit. All questions answered, the patient verbalized understanding I spent a total of 20 minutes reviewing the chart, talking to the patient via video and documenting in the medical record. Coding Level of Care Code Tele Est Pt Level 3 (85214) Diagnoses Endometrial hyperplasia without atypia N85.00
--- OUTSIDE RECORDS SUMMARY | 2024-04-13 19:01 | XMS_ITS | Clinical Summary ---
Author Organization [employer] Address [address] [place] [address] [address] [place] [address] Care Team Providers Care Dielectric Press Operator Name Role Phone Unavailable Primary Care [...]
== END 2024-04-14 14:04 | disposition home or self-care (01) ==
LOC: HO.HWS 15:50
PROVIDERS: PCP Internal Medicine; Visit Provider Obstetrics & Gynecology
DX: N85.00 Endometrial hyperplasia, unspecified (principal)
CPT/HCPCS: 99213

== ENCOUNTER → 2024-04-13 15:50 | Outpatient (BNVA) | payer BC, SELFPAY | PROVIDERS: PCP Internal Medicine; Visit Provider Obstetrics & Gynecology ==

== ENCOUNTER 2025-01-19 15:22 | Outpatient (AMB) | payer BC, SELFPAY ==
--- NOTE | 2025-01-19 15:33 | MHC.OFFVIS ---
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 Services: Community Service Coordinator Present (in person) Community Service Coordinator Name: Ira BOWDEN Information Interpreted: non-clinical & clinical Quarantine Officer: Quarantine Officer Present (Ira BOWDEN) Accompanied by: Self / Same As Patient Allergies No Known Allergies Allergy (Mild, Verified 01/19/25 15:37) NOT APPLICABLE Is last menstrual period known: Yes HPI Comments Details: Presenting for annual exam with no complaints, last EMB was in 05/03 for endometrial hyperplasia on Mirena IUD Last Co testing 05/02 was negative Last mammogram 04/05 BI-RADS 1 PFSH Medical History Irregular periods Surgical History Hx of dilation and curettage Family History Mother Pre-diabetes Hypertension Father Hypertension Paternal Uncle Prostate cancer Paternal Aunt Bladder cancer Social History Household Members: Spouse and Children Housing: Apartment Alcohol intake: never Patient Tobacco Use Status: Never used Tobacco e-Cigarette/Vaping Use: Never Used Second Hand Smoke Exposure: No service: No Current occupational status: employed 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 Current occupational exposures/hazards: No Sexual orientation: Straight/Heterosexual Gender identity: Female Cognitive needs: No Hearing needs: No Vision needs: No Female Reproductive History Menstrual Age of Menarche: 12 control method: progestin IUCD Date of last pap smear: 04/22/23 Date of Mammogram: 04/04/24 Review of Systems Const All systems reviewed & are unremarkable except as noted in HPI and below Card Reports as per HPI Resp Reports as per HPI GI Reports as per HPI and Reports no additional complaints Reports as per HPI Physical Exam Vital Signs: Last Vital Signs BP 124/82 01/19/25 15:35 BMI result Body Mass Index 34.2 Const General: cooperative, healthy appearing and comfortable Chest Chest palpation & inspection: normal inspection of the chest and normal palpation of entire chest wall Breast/axilla inspection: normal inspection of the breasts and normal inspection of the axillae Breast/axilla palpation: normal palpation of the breasts, normal palpation of the axillae and no axillary lymphadenopathy Resp Effort & Inspection: normal respiratory effort Auscultation: clear to auscultation bilaterally Percussion: percussion normal Cardio Palpation: normal PMI Rate: regular rate Rhythm: regular rhythm Heart sounds: no murmurs and no rubs Peripheral pulses: Peripheral pulses 2+ throughout GI Inspection: Yes normal to inspection Palpation (GI): Soft to palpation, nontender, no guarding, not rigid and No hepatosplenomegaly present Percussion: Yes normal to percussion Auscultation: normal bowel sounds Rectal Exam - Female: deferred General: Yes bladder normal to palpation External Female Exam: No lesion Speculum Exam - Vagina: normal appearance of the vagina, normal palpation, normal vaginal discharge and not erythematous Speculum Exam - Cervix: normal appearance of the cervix, normal palpation and Other cervical findings present (IUD string seen) Bimanual exam- vagina & uterus: normal bimanual exam, normal palpation, uterine size normal, bladder normal to palpation, consistency normal and normal palpation Bimanual Exam- Adnexa, other: normal adnexae, no masses and no tenderness Office Procedures Endometrial Biopsy Details: The patient was counseled regarding the indication and benefits of endometrial sampling to rule out endometrial pathology including not limited to endometrial hyperplasia or endometrial cancer and others; The alternatives (Either do nothing vs. hysteroscopy D&C) & the risks were discussed with the patient including but not limited: pain, uterine perforation, bleeding, infection, possible injury to bladder, bowel, ureter, possible need for blood transfusion with all its possible risks. The patient verbalized understanding all questions answered and signed consent. Urine test done in the office was negative The patient was placed into the dorsal lithotomy position; a speculum was inserted in the vagina. Using aseptic technique for the procedure, the cervix was cleansed with Betadine. The anterior lip of the cervix was grasped with a single tooth tenaculum. The uterus was sounded to 7 cm with a 4 mm Pipelle was used. Tissues samples were obtained and placed in formalin, in a patient labeled container and sent to the pathology department. At the end of the procedure, there was minimal bleeding noted The patient tolerated the procedure well and was discharged in good condition with the following instructions: Nothing in the vagina until the bleeding stops. No sex until the bleeding stops, to call if any of the following occurs: fever (>100.4), flu-like symptoms, abdominal pain, heavy bleeding, four smelling vaginal discharge. The patient was instructed to schedule a Follow up appointment in 2 weeks to discuss pathology results of the biopsy and treatment options. This note was generated with a voice recognition program. Some errors may have been overlooked during the review of this note. Sometimes these errors may affect the content or meaning of a given sentence. [id number] Biopsy Assessment & Plan Assessment & Plan (1) Well woman exam: Code(s): Z01.419 - Encounter for gynecological examination (general) (routine) without abnormal findings Category: Medical Plan: Cotesting not indicated this year. Mammogram ordered. Counseled the patient about the recommended dietary allowance of 1000 mg of Calcium & 600 IU of vitamin D. The patient was instructed to perform monthly self-breast exams and to schedule an annual exam in a year; All questions answered and the patient verbalized understanding. Instructed the patient to schedule annual exam in a year (2) Endometrial hyperplasia without atypia: Comment: 06/02 on Mirena IUD since then Code(s): N85.00 - Endometrial hyperplasia, unspecified Category: Medical Plan: EMB repeated, instructions given the patient to schedule a follow-up appointment within 2 weeks Orders: Orders MM tomosynthesis screening BI Today Z12.31 - Encounter for screening mammogram for malignant neoplasm of breast AMB Endometrial Biopsy Today N85.00 - Endometrial hyperplasia, unspecified Coding Level of Care Code Procedure Only Diagnoses Well woman exam Z01.419 Endometrial hyperplasia without atypia N85.00 CPT Codes Endometrial Biopsy - CPT: 23298-Moiaigqunkd Biopsy ([id number])
[2025-01-19 15:35] VITALS: BP 124/82; BMI 34.2
== END 2025-01-19 16:29 | disposition home or self-care (01) ==
LOC: HO.HWS 15:22
PROVIDERS: PCP Internal Medicine; Visit Provider Obstetrics & Gynecology
DX: Z01.419 Encounter for gynecological examination (general) (routine) without abnormal findings (principal); N85.00 Endometrial hyperplasia, unspecified; Z32.02 Encounter for pregnancy test, result negative
CPT/HCPCS: 58100; 99396; 99459

== ENCOUNTER 2025-01-19 15:22 | Outpatient (REF) | payer BC, SELFPAY ==
--- OUTSIDE RECORDS SUMMARY | 2025-01-19 23:15 | XMS_ITS | Clinical Summary ---
Author Organization [facility] Address [address] [place] [address] [address] [place] [address] Care Team Providers Care Operations Professional Name Role Phone Unavailable Primary Care Provider [...] Date Last Done Comments Depression Screening 1982 Disability Screening 1982 Alcohol/Substance Use Screening 1994 Tobacco Screening 1994 Family Planning (PISQ) 1997 HPV Vaccines (1 - 3-dose series) 1997 Hepatitis B Vaccines (1 of 3 - 19+ 3-dose series) 2001 Pap Smear 08/22/2003 Cervical Cancer Screening 2012 HPV/Cotest 2012 DTaP/Tdap/Td Vaccines (3 - T d or Tdap) 06/14/2022 06/14/2012, 10/17/2011 Mammogram 2022 COVID-19 Vaccine (1 - 2024-2 6 season) 2024 Influenza Vaccine (#1) 2024 10/17/2011 Zoster Vaccines (1 of 2) 2032 [...] patient's age to complete this topic Meningococcal B Vaccine Aged Out No l onger eligible based on patient's age to complete this topic Meningococcal Vaccine Aged Out No leti asim eligible based on patient's age to complete this topic Pneumococcal Vaccine: Pediatrics (0 to 5 Years) and At-Risk Patients (6 to 49) Years Aged Out No longer eligible b ased on patient's age to complete this topic RSV under 20 months Aged Out No longe r eligible based on patient's age to complete this topic Rotavirus Vaccines Aged Out No longer eligible based on patient's age to complete this topic
== END 2025-01-19 15:23 | disposition home or self-care (01) ==
LOC: HO.LNP 15:22
PROVIDERS: PCP Internal Medicine; Visit Provider Obstetrics & Gynecology
DX: Z01.419 Encounter for gynecological examination (general) (routine) without abnormal findings (principal); N85.00 Endometrial hyperplasia, unspecified; Z32.02 Encounter for pregnancy test, result negative
CPT/HCPCS: 58100; 81025; 88305